=== PATIENT | female | born 2000 | race Caucasian/White ===

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

== ENCOUNTER → 2022-02-28 | Outpatient (REF) | payer OTHER | LOC: M LAB REF 08:29 | PROVIDERS: ATTEND Physician Assistant | DX: J02.9 Acute pharyngitis, unspecified (principal) ==

== ENCOUNTER → 2022-09-05 | Outpatient (REF) | payer OTHER ==
[2022-09-05 17:27] LABS: BASO # 0.1 10^3/uL (0.0-0.2); BASO % 1.1 % (0.0-1.0); EOS # 0.1 10^3/uL (0.0-0.5); EOS % 1.9 % (0.0-3.0); LYMPH # 1.7 10^3/uL (1.5-5.0); LYMPH % 35.8 % (24.0-44.0); MEAN CORPUSCULAR HEMOGLOBIN 30.6 pg (27.0-33.0); MEAN CORPUSCULAR HGB CONC 32.5 g/dl (32.0-36.5); MEAN CORPUSCULAR VOLUME 94.1 fl (80.0-96.0); MONO # 0.4 10^3/uL (0.0-0.8); MONO % 7.5 % (2.0-8.0); NEUTROPHILS # 2.5 10^3/uL (1.5-8.5); NEUTROPHILS % 53.3 % (36.0-66.0); PLATELET COUNT, AUTOMATED 298 10^3/uL (150-450); RED BLOOD COUNT 4.25 10^6/uL (4.00-5.40); WHITE BLOOD COUNT 4.7 10^3/uL (4.0-10.0)
[2022-09-05 18:00] LABS: FERRITIN 40.1 NG/ML (7.3-270.7); THYROID STIMULATING HORMONE 1.552 uIU/ML (0.48-4.17)
== END ==
LOC: M LAB REF 16:29
PROVIDERS: ATTEND Pediatrics
DX: R41.3 Other amnesia (principal)

== ENCOUNTER → 2024-05-25 | Outpatient (REF) | payer OTHER ==
[~2024-05-25] MED LIST changes: +AMPH1CAP14; +BUPR-71; +CEFD1CAP9; +CETI10CA13 PO; +IBUP-1022 PO
== END ==
LOC: M LAB REF 18:46
PROVIDERS: ATTEND Physician Assistant Medical
DX: R50.9 Fever, unspecified (principal)

== ENCOUNTER 2024-05-28 18:25 | Emergency (ER) | payer MEDICAID, OTHER, SELFPAY ==
[~2024-05-28] VITALS: Ht 160 cm; Wt 52.4 kg
[~2024-05-28 18:25] MED LIST changes: -AMPH1CAP14; -BUPR-71; -CEFD1CAP9; -CETI10CA13 PO; -IBUP-1022 PO
[2024-05-28] MEDS ORDERED: BUPR-71 (18:33)
[2024-05-28] MEDS ORDERED: AMPH1CAP14 (18:33)
[2024-05-28] MEDS ORDERED: CEFD1CAP9 (18:33)
[2024-05-28] MEDS ORDERED: CETI10CA13 PO (18:34)
[2024-05-28 19:20] LABS: BASO # 0.1 10^3/uL (0.0-0.2); BASO % 0.8 % (0.0-1.0); EOS # 0.1 10^3/uL (0.0-0.5); HEMATOCRIT 38.9 % (36.0-47.0); HEMOGLOBIN 13.2 g/dl (12.0-15.5); LYMPH % 33.1 % (24.0-44.0); MEAN CORPUSCULAR HEMOGLOBIN 30.9 pg (27.0-33.0); MEAN CORPUSCULAR HGB CONC 33.9 g/dl (32.0-36.5); MEAN CORPUSCULAR VOLUME 91.1 fl (80.0-96.0); MONO # 0.4 10^3/uL (0.0-0.8); MONO % 4.6 % (2.0-8.0); NEUTROPHILS # 5.5 10^3/uL (1.5-8.5); NEUTROPHILS % 60.3 % (36.0-66.0); PLATELET COUNT, AUTOMATED 377 10^3/uL (150-450); RED BLOOD COUNT 4.27 10^6/uL (4.00-5.40); WHITE BLOOD COUNT 9.1 10^3/uL (4.0-10.0)
[2024-05-28] MEDS: KETOROLAC 30 MG/ML 1ML VIAL IV ONE (19:53)
[2024-05-28 19:54] LABS: LIPASE 35 U/L (12-53)
[2024-05-28 19:55] LABS: HCG, SERUM QUALITATIVE NEGATIVE (NEGATIVE)
[2024-05-28 19:56] LABS: ALBUMIN 3.9 G/DL (3.2-5.2); ALKALINE PHOSPHATASE 52 U/L (46-116); ALT/SGPT 16 U/L (7.0-40); AST/SGOT 11 U/L (<34); BILIRUBIN,DIRECT 0.1 MG/DL (<0.4); BILIRUBIN,TOTAL 0.3 MG/DL (0.3-1.2); TOTAL PROTEIN 7.5 G/DL (5.7-8.2)
[2024-05-28] MEDS ORDERED: ISOVUE-370 76% 100ML VIAL As Ordered ONE (20:13)
[2024-05-28] MEDS ORDERED: IBUP-1022 PO (21:25)
[2024-05-28 21:35] VITALS: BP 131/74; TEMP 99.2; O2SAT 99
== END 2024-05-28 21:37 | disposition home or self-care (01) ==
LOC: M ED 18:25
DX: I88.0 Nonspecific mesenteric lymphadenitis (principal); K21.9 Gastro-esophageal reflux disease without esophagitis; R56.9 Unspecified convulsions; F17.200 Nicotine dependence, unspecified, uncomplicated
CPT/HCPCS: 74177; 80047; 80076; 81001; 83690; 84703; 85025; 96374; 99284; J1885; Q9967

== ENCOUNTER 2024-11-09 15:13 | Emergency (ER) | payer OTHER, SELFPAY ==
[~2024-11-09] VITALS: Ht 157.5 cm; Wt 51.8 kg
[~2024-11-09 15:13] MED LIST changes: +AMPH1CAP14; +BUPR-71; +CEFD1CAP9; +CETI10CA13 PO; +IBUP-1022 PO
[2024-11-09] MEDS ORDERED: SERT50TA29 (15:24)
[2024-11-09] MEDS ORDERED: PRAZ1CAP (15:24)
[2024-11-09] MEDS ORDERED: ETON68IM SC (15:26)
[2024-11-09 16:57] VITALS: BP 103/60; TEMP 98.6; O2SAT 100
[2024-11-09] MEDS: IBUPROFEN 600MG TAB PO ONE (17:11)
== END 2024-11-09 17:13 | disposition home or self-care (01) ==
LOC: M ED 15:13
DX: S00.80XA Unspecified superficial injury of other part of head, initial encounter (principal); W22.8XXA Striking against or struck by other objects, initial encounter; Y92.9 Unspecified place or not applicable; Y93.9 Activity, unspecified; Y99.9 Unspecified external cause status; F17.200 Nicotine dependence, unspecified, uncomplicated; F17.290 Nicotine dependence, other tobacco product, uncomplicated; F12.10 Cannabis abuse, uncomplicated; Z79.899 Other long term (current) drug therapy

== ENCOUNTER → 2025-03-22 | Outpatient (CLI) | payer OTHER ==
[~2025-03-22] MED LIST changes: +ETON68IM SC; +PRAZ1CAP; +SERT50TA29
== END ==
LOC: M RAD 09:49
PROVIDERS: ATTEND Pediatrics
DX: R06.09 Other forms of dyspnea (principal)

== ENCOUNTER → 2025-04-15 | Outpatient (REF) | payer OTHER ==
[2025-04-15 15:10] LABS: BASO # 0.0 10^3/uL (0.0-0.2); BASO % 0.7 % (0.0-1.0); EOS # 0.0 10^3/uL (0.0-0.5); EOS % 0.2 % (0.0-3.0); LYMPH # 1.3 10^3/uL (1.5-5.0); LYMPH % 30.1 % (24.0-44.0); MONO # 0.6 10^3/uL (0.0-0.8); MONO % 13.3 % (2.0-8.0); NEUTROPHILS # 2.4 10^3/uL (1.5-8.5); NEUTROPHILS % 55.7 % (36.0-66.0); PLATELET COUNT, AUTOMATED 215 10^3/uL (150-450)
[2025-04-15 15:14] LABS: LUTEINIZING HORMONE 3.9 mIU/ML
== END ==
LOC: M LAB REF 14:34
PROVIDERS: ATTEND Pediatrics
DX: N92.6 Irregular menstruation, unspecified (principal)

== ENCOUNTER → 2025-06-08 | Outpatient (REF) | payer OTHER ==
[~2025-06-08] MED LIST changes: -IBUP-1022 PO; +IBUP600T42 PO
== END ==
LOC: M LAB REF 16:26
PROVIDERS: ATTEND Pediatrics
DX: Z01.84 Encounter for antibody response examination (principal)

== ENCOUNTER → 2025-06-09 | Outpatient (CLI) | payer OTHER | LOC: M WHC 12:51 | PROVIDERS: ATTEND Pediatrics | DX: N92.1 Excessive and frequent menstruation with irregular cycle (principal) ==